=== PATIENT | female | born 1945 | race Caucasian/White ===

== ENCOUNTER → 2016-09-27 | Outpatient (CLI) | payer BC ==
[~2016-09-27] MED LIST: CALCTAB5 PO; ERGO1CAP35 PO; LEVO112T2 PO; MISCCAP80
--- NOTE | 2016-09-27 12:08 | DIAGNOSTIC IMAGING REPORT ---
PA CHEST RADIOGRAPH AND UPRIGHT AND SUPINE AP RADIOGRAPHS OF THE ABDOMEN CLINICAL HISTORY: Right lower quadrant abdominal pain. COMPARISON STUDY: CT of the chest abdomen and pelvis October 19, 2015. FINDINGS: Lung volumes are normal. There is no pneumothorax or pleural effusion. Cardiomediastinal silhouette is unremarkable and there is no evidence of pulmonary edema. There is no free air. The bowel gas pattern is normal. Postsurgical findings within the pelvis are incidentally noted. IMPRESSION: 1. No free air or evidence of bowel obstruction. 2. No acute cardiopulmonary findings. Electronically signed by: Abraham Flores M.D. 09/27/2016 12:07 PM Dictated Date/Time: 09/27/2016 12:05 PM
[2016-09-27 13:09] LABS: HEMATOCRIT 44.5 % (37-47); MEAN CORPUSCULAR HEMOGLOBIN 30.3 pg (25-34); MEAN CORPUSCULAR HGB CONC 33.3 g/dl (32-36); MEAN PLATELET VOLUME 9.7 fL (7.4-10.4); PLATELET COUNT 345 K/uL (130-400); RED BLOOD COUNT 4.89 M/uL (4.2-5.4); WHITE BLOOD COUNT 15.21 K/uL (4.8-10.8)
[2016-09-27 14:22] LABS: ALT/SGPT 24 U/L (12-78); AST/SGOT 12 U/L (15-37); BLOOD UREA NITROGEN 15 mg/dl (7-18); BUN/CREATININE RATIO 21.4 (10-20); CALCIUM 9.3 mg/dl (8.5-10.1); CARBON DIOXIDE 27 mmol/L (21-32); CHLORIDE 106 mmol/L (98-107); CREATININE 0.72 mg/dl (0.60-1.20); GLUCOSE 88 mg/dl (70-99); SODIUM 141 mmol/L (136-145)
[2016-09-27 14:24] LABS: ALB/GLOB RATIO 1.1 (0.9-2); ALKALINE PHOSPHATASE 116 U/L (45-117)
[2016-09-27 14:36] LABS: BASO % 0.2 %; BASO ABS # 0.03 K/uL (0-0.2); COMPLETE YES; EOS % 0.7 %; HYPERSEGMENTED POLYS 1+; IG% 0.5 %; LYMPH % 53.3 %; MONO % 4.5 %; NEUT % 40.8 %; SMUDGE CELLS PRESENT
== END | disposition home or self-care (01) ==
LOC: C.RAD1850 11:35
PROVIDERS: ATTEND Family Medicine
DX: R10.31 Right lower quadrant pain (principal)

== ENCOUNTER → 2016-09-28 | Outpatient (CLI) | payer BC ==
--- NOTE | 2016-09-28 12:32 | DIAGNOSTIC IMAGING REPORT ---
CHEST CT WITHOUT CONTRAST CT DOSE: 202.86 mGy.cm HISTORY: R91.1 Pulmonary nodule TECHNIQUE: Multiaxial CT images of the chest were performed without contrast. COMPARISON: Chest CT 10/19/2015. FINDINGS: No pneumothorax. No pleural effusions. Stable 4 mm nodule within the lingula on image 115. Bibasilar linear densities consistent with subsegmental atelectasis. There is a 5 mm nodule within the left lower lobe on image 147. This is also similar to the prior study. This demonstrates an area of branching and may be associated with an impacted bronchus. No new focal lung consolidations. No new pulmonary nodules. No fractures within the visualized osseous structures. Subcentimeter mediastinal lymph nodes do not meet CT criteria for pathologic involvement. There is a cluster of calcifications within the right hepatic lobe, unchanged. The ascending thoracic aorta measures up to 4.2 cm in diameter. IMPRESSION: 1. Stable subcentimeter indeterminate pulmonary nodules within the left lung as described above with the largest measuring 5 mm. Please refer to the chart below for recommended follow-up. 2. The ascending thoracic aorta measures up to 4.2 cm in diameter. This is also unchanged. Please refer to below summary of Fleischner criteria recommendations for follow-up of incidental CT nodules (Dustin Carter, Guidelines for management of small pulmonary nodules detected on CT scans: A statement from the Fleischner Society, Radiology 237: [phone].) SOLID NODULES Solitary nodule size: <6 mm * Low risk patients: no follow-up needed * high risk patients: optional CT at 12 months Solitary nodule size: 6-8 mm * Low risk patients: follow-up at 6-12 months, then consider further follow-up at 18-24 months * high risk patients: initial follow-up CT at 6-12 months and then at 18-24 months if no change Solitary nodule size: >8 mm * either low or high risk patients - consider follow-up CT at 3 months, and/or CT-PET, and/or biopsy Multiple nodules size: <6 mm * Low risk patients: no routine follow-up * high risk patients: optional CT at 12 months Multiple nodules size: 6-8 mm * Low risk patients: follow-up at 3-6 months, then consider further follow-up at 18-24 months * high risk patients: follow-up at 3-6 months, then at 18-24 months if no change Multiple nodules size: >8 mm * Low risk patients: follow-up at 3-6 months, then consider further follow-up at 18-24 months * high risk patients: follow-up at 3-6 months, then at 18-24 months if no change Note: newly detected indeterminate nodule in persons 35 years of age or older. * Low risk patients: minimal or absent history of smoking and/or other known risk factors * high risk patients: history of smoking or of other known risk factors (e.g. first degree relative with lung cancer, or exposure to asbestos, radon, uranium) * if a nodule up to 8 mm is partly solid or is ground glass further follow-up is required after 24 months to exclude possible slow growing adenocarcinoma (EVY) SUBSOLID NODULES Solitary pure ground-glass nodule * nodule size <6 mm - no CT follow-up required * nodule size >=6 mm - follow-up CT at 6-12 months, then every 2 years until 5 years Solitary part-solid nodule * nodule size <6 mm - no CT follow-up required * nodule size >=6 mm - follow-up CT at 3-6 months. If unchanged, and solid component remains <6 mm, then annual follow-up for 5 years Multiple subsolid nodules * nodule size <6 mm - follow-up CT at 3-6 months, consider further follow-up at 2 and 4 years if stable * nodule size >=6 mm - follow-up CT at 3-6 months, subsequent management based on the most suspicious nodule(s) Electronically signed by: Carlos Corral M.D. 09/28/2016 12:31 PM Dictated Date/Time: 09/28/2016 12:24 PM
== END | disposition home or self-care (01) ==
LOC: C.CTS 11:25
PROVIDERS: ATTEND Family Medicine
DX: R91.1 Solitary pulmonary nodule (principal)

== ENCOUNTER → 2016-10-11 | Outpatient (CLI) | payer BC | END | disposition home or self-care (01) | LOC: C.LABSPEC 11:23 | PROVIDERS: ATTEND Nurse Practitioner Family | DX: R39.9 Unspecified symptoms and signs involving the genitourinary system (principal); R30.0 Dysuria ==

== ENCOUNTER → 2016-11-26 | Outpatient (CLI) | payer BC ==
[2016-11-26 09:40] LABS: HEMATOCRIT 42.8 % (37-47); MEAN CELL VOLUME 90.7 fL (80-100); MEAN CORPUSCULAR HEMOGLOBIN 30.1 pg (25-34); MEAN CORPUSCULAR HGB CONC 33.2 g/dl (32-36); MEAN PLATELET VOLUME 9.5 fL (7.4-10.4); PLATELET COUNT 328 K/uL (130-400); RED BLOOD COUNT 4.72 M/uL (4.2-5.4); WHITE BLOOD COUNT 13.23 K/uL (4.8-10.8)
[2016-11-26 09:49] LABS: ALT/SGPT 23 U/L (12-78); AST/SGOT 12 U/L (15-37); BLOOD UREA NITROGEN 13 mg/dl (7-18); BUN/CREATININE RATIO 18.7 (10-20); CALCIUM 8.9 mg/dl (8.5-10.1); CARBON DIOXIDE 31 mmol/L (21-32); CHLORIDE 108 mmol/L (98-107); GLUCOSE 106 mg/dl (70-99); HDL CHOLESTEROL 52 mg/dl; SODIUM 142 mmol/L (136-145)
[2016-11-26 10:01] LABS: ALB/GLOB RATIO 1.1 (0.9-2); ALKALINE PHOSPHATASE 120 U/L (45-117); CHOLESTEROL 215 mg/dl (0-200); CHOLESTEROL/HDL RATIO 4.1; IMMUNOGLOBULN A 51.6 mg/dL (70-400); IMMUNOGLOBULN M 51.4 mg/dL (40-230); LDL CHOLESTEROL CALCULATED 142 mg/dl; TRIGLYCERIDES 107 mg/dl (0-150); URIC ACID 4.8 mg/dl (2.6-7.2); VERY LOW DENSITY LIPOPROT CALC 21 mg/dl
[2016-11-26 10:28] LABS: BASO % 0.4 %; BASO ABS # 0.05 K/uL (0-0.2); COMPLETE YES; EOS % 0.8 %; IG% 0.5 %; LYMPH % 56.3 %; LYMPH ABS # 7.45 K/uL (1.2-3.4); MONO % 5.6 %; NEUT % 36.4 %; SMUDGE CELLS PRESENT
== END | disposition home or self-care (01) ==
LOC: C.LAB1850 07:47
PROVIDERS: ATTEND Family Medicine
DX: E78.00 Pure hypercholesterolemia, unspecified (principal); E03.9 Hypothyroidism, unspecified; K21.0 Gastro-esophageal reflux disease with esophagitis; K76.89 Other specified diseases of liver; E55.9 Vitamin D deficiency, unspecified; D72.820 Lymphocytosis (symptomatic)

== ENCOUNTER → 2016-12-06 | Outpatient (CLI) | payer BC ==
--- NOTE | 2016-12-06 15:50 | DIAGNOSTIC IMAGING REPORT ---
CHEST 2 VIEWS ROUTINE CLINICAL HISTORY: COUGH COMPARISON STUDY: 09/27/2016 FINDINGS: The cardiac and mediastinal contours are normal. There is no evidence of focal pulmonary consolidation. There is no evidence of failure. No pleural effusions are visualized.[ IMPRESSION: No active disease in the chest. Electronically signed by: Wilber Olivares M.D. 12/06/2016 3:49 PM Dictated Date/Time: 12/06/2016 3:49 PM
== END | disposition home or self-care (01) ==
LOC: C.RAD1850 15:32
PROVIDERS: ATTEND Nurse Practitioner Family
DX: R05 Cough (principal)

== ENCOUNTER → 2016-12-21 | Outpatient (CLI) | payer BC | END | disposition home or self-care (01) | LOC: C.MAMM 12:44 | PROVIDERS: ATTEND Nurse Practitioner Family | DX: M85.852 Other specified disorders of bone density and structure, left thigh (principal); M85.88 Other specified disorders of bone density and structure, other site ==

== ENCOUNTER → 2017-05-25 | Outpatient (CLI) | payer BC ==
[~2017-05-25] MED LIST changes: -MISCCAP80; +MISCCAP80 PO; +TIMO4SOL2 OPR
[2017-05-25 12:16] LABS: HEMATOCRIT 42.7 % (37-47); HEMOGLOBIN 14.4 g/dL (12.0-16.0); MEAN CELL VOLUME 91.4 fL (80-100); MEAN CORPUSCULAR HEMOGLOBIN 30.8 pg (25-34); MEAN CORPUSCULAR HGB CONC 33.7 g/dl (32-36); MEAN PLATELET VOLUME 9.8 fL (7.4-10.4); PLATELET COUNT 311 K/uL (130-400); RED CELL DISTRIBUTION WIDTH CV 13.1 % (11.5-14.5); RED CELL DISTRIBUTION WIDTH SD 43.2 fL (36.4-46.3); WHITE BLOOD COUNT 14.35 K/uL (4.8-10.8)
[2017-05-25 13:02] LABS: BASO % 0.2 %; BASO ABS # 0.03 K/uL (0-0.2); EOS % 0.6 %; EOS ABS # 0.08 K/uL (0-0.5); IG# 0.05 K/uL (0.00-0.02); LYMPH % 55.1 %; MONO % 4.5 %; MONO ABS # 0.64 K/uL (0.11-0.59); NEUT % 39.3 %; NEUT ABS # 5.65 K/uL (1.4-6.5)
[2017-05-25 15:31] LABS: ALBUMIN 3.7 gm/dl (3.4-5.0); ALT/SGPT 22 U/L (12-78); AST/SGOT 13 U/L (15-37); BLOOD UREA NITROGEN 13 mg/dl (7-18); CALCIUM 8.9 mg/dl (8.5-10.1); CARBON DIOXIDE 27 mmol/L (21-32); CREATININE 0.87 mg/dl (0.60-1.20); GLUCOSE 92 mg/dl (70-99); POTASSIUM 4.2 mmol/L (3.5-5.1); SODIUM 139 mmol/L (136-145); URIC ACID 4.2 mg/dl (2.6-7.2)
[2017-05-25 15:49] LABS: ALKALINE PHOSPHATASE 103 U/L (45-117); CHOLESTEROL 193 mg/dl (0-200); LDL CHOLESTEROL CALCULATED 115 mg/dl
== END | disposition home or self-care (01) ==
LOC: C.LAB1850 10:24
PROVIDERS: ATTEND Nurse Practitioner Family
DX: E78.00 Pure hypercholesterolemia, unspecified (principal); E03.9 Hypothyroidism, unspecified; K21.0 Gastro-esophageal reflux disease with esophagitis; E55.9 Vitamin D deficiency, unspecified; D72.820 Lymphocytosis (symptomatic)

== ENCOUNTER → 2017-10-03 | Outpatient (CLI) | payer BC ==
[~2017-10-03] MED LIST changes: +MISCCAP80; -MISCCAP80 PO; -TIMO4SOL2 OPR
== END | disposition home or self-care (01) ==
LOC: C.LAB1850 09:39
PROVIDERS: ATTEND Nurse Practitioner Family
DX: R39.9 Unspecified symptoms and signs involving the genitourinary system (principal)